=== PATIENT | female | born 1955 | race African-American/Black ===

== ENCOUNTER 2018-07-06 08:05 | Day surgery (SDC) | payer OTHER ==
[2018-07-06] MEDS ORDERED: LIDOCAINE 4% SOLUTION 50 ML BTL ×2 (09:07→09:30)
[2018-07-06] MEDS ORDERED: LABETALOL HCL 20MG INJ (10:13)
[2018-07-06] MEDS ORDERED: MIDAZOLAM 1 MG/ML 2 ML INJ ×2 (10:42→10:43)
[2018-07-06] MEDS ORDERED: FENTAnyl 50 MCG/ML VIAL (10:43)
== END 2018-07-06 12:54 | disposition home or self-care (01) ==
LOC: GIL 08:05
DX: Z12.11 Encounter for screening for malignant neoplasm of colon (principal); D12.4 Benign neoplasm of descending colon; K57.90 Diverticulosis of intestine, part unspecified, without perforation or abscess without bleeding; K29.50 Unspecified chronic gastritis without bleeding; I10 Essential (primary) hypertension; E11.9 Type 2 diabetes mellitus without complications
CPT/HCPCS: 43239; 82962; 88305; 88312